=== PATIENT | male | born 1945 | race Caucasian/White ===

== ENCOUNTER 2023-03-18 09:13 | Emergency (ER) | payer MEDICARE, OTHER, SELFPAY ==
[2023-03-18 09:17] VITALS: BP 152/88
--- NOTE | 2023-03-18 09:29 | ED.GENMED ---
History of Present Illness
General
Chief Complaint: Swelling
Source: patient
Exam Limitations: none
Time Seen by Provider: 03/18/23 09:24
Nursing documentation reviewed up to this point in time: agreed with
Travel History
Have you had any contact with someone who has COVID-19?: No
Do you have any symptoms of coronavirus? Fever > 100 degrees, chills, cough, shortness of breath, sore throat, loss of taste or smell, muscle aches, or headache?: No
History of Present Illness
History of Present Illness:
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 Presenting to the emergency department today with concerns of left-sided neck swelling that he noticed
yesterday worsening today no trouble swallowing or breathing. No additional symptoms otherwise. No recent infection.
Past History
Past History
ED Past Medical History: Cancer (Tonsil) and Other (Kidney stones)
ED Past Surgical History: Appendectomy and Other (Radical neck for tonsillar cancer resection; hernia repair)
Social History
Alcohol: None
Personal:
Living: with family
Employment: Retired
Family History
Family History: Other (Noncontributory)
Review of Systems
Review of Systems
Allergies reviewed?: Yes
All Other Systems: ROS reviewed and negative except as documented in HPI and ROS
Phy Exam
Physical Exam
Physical Exam:
GENERAL: Alert , in no apparent distress
EYE: pupils equal and reactive
NECK: Swelling of roughly 3 cm x 3 cm to the left lateral neck does not feel to be somewhat mobile and subcutaneous potentially consistent with lymph node no fluctuance or induration. Supple, no significant adenopathy.
ENT: o/p clr, mmm.
CARDIAC: Regular rate and rhythm .
LUNGS: Clear breath sounds bilaterally, no acute respiratory distress, no wheezes/rales/rhonchi
ABDOMEN: Soft, without focal tenderness, no r/g, no cvat
NEUROLOGICAL: Alert and oriented, no focal neuro deficits
SKIN: Warm and dry, skin intact.
MUSCULOSKELETAL: No edema, well perfused.
PSYCH: Normal and appropriate interaction.
Scores
Heart Failure Risk
Heart Failure Risk Score: Not Applicable
Course
Orders/Labs/Results
Orders:
Orders
03/18/23 09:28
CT Neck With Iv Contrast Urgent
Comment:
Reason For Exam: left neck swelling, hx of tonsillar CA,
03/18/23 09:35
BMP [Basic Metabolic Panel] Urgent
CBC/With Diff [Complete Blood Count/With Diff] Urgent
Abnormal Lab Results
03/18/23
09:35
Absolute Monos (auto) 1.0 H 10^3/uL
(0.1-0.6)
Lymphocytes % 14.1 L %
(20.5-51.1)
Monocytes % 12.5 H %
(1.7-9.3)
BUN 28 H mg/dl
(9-20)
Creatinine 1.5 H mg/dL
(0.7-1.3)
Glucose 158 H mg/dl
(70-99)
03/18/23 09:35
03/18/23 09:35
Vital Signs
Initial and Last Documented VS:
Initial Vital Signs
Temp Pulse Resp BP Pulse Ox
97.8 F 73 18 152/88 99
03/18/23 09:17 03/18/23 09:17 03/18/23 09:17 03/18/23 09:17 03/18/23 09:17
Last Documented Vital Signs
Temp Pulse Resp BP Pulse Ox
97.8 F 64 16 138/77 98
03/18/23 09:17 03/18/23 12:30 03/18/23 12:30 03/18/23 12:30 03/18/23 12:30
MDM/Problems Addressed
MDM/Problems Addressed:
78-year-old male presenting to the emergency department today with concerns of left lower neck swelling starting yesterday. History of tonsillar cancer. Did have previous lymph node removal on the right side of the neck. There is swelling on
examination mild tenderness mild redness to the area no fluctuance or induration potentially consistent with lymph node however with history of cancer plan for CT scan for further assessment. Labs were obtained creatinine patient's baseline 1.5.
CT scan showing swollen lymph node with concern for potential metastasis. Case was discussed with oncology recommended close outpatient follow-up. Otherwise patient stable throughout ER stay will follow-up closely.
*Critical Care Note
Total Time (30-74mins, 75-104mins- exclusive of procedures): Not Applicable
ED Attending Note
-
Portions of this chart may have been created with voice recognition software.� Occasional wrong word or��sound alike� substitutions may have occurred due to the inherent limitations of voice recognition software.
Discharge Plan
Departure
Patient Disposition: Home (Routine Discharge)
Date of Disposition: 03/18/23
Time of Disposition: 13:54
Patient with high blood pressure during this ER visit?: No
Condition: Good
Covid-19: Not Applicable
Discharge Problem:
Supraclavicular adenopathy
Instructions: Lymphadenitis
Prescriptions:
No Action
finasteride 5 MG tablet
5 mg PO DAILY Qty: 30 0RF
loratadine 10 MG tablet
10 mg PO DAILY 0RF
aspirin 81 MG tablet,delayed release (DR/EC)
81 mg PO QPM
simvastatin 40 MG tablet
40 mg PO QPM
cyclosporine [Restasis] 10 DROPS dropperette
1 drops BOTH EYES BID
metoprolol succinate [Toprol XL] 50 mg Tablet Extended Release 24 Hr
50 mg PO DAILY
levothyroxine 25 mcg Tablet
25 mcg PO DAILY
losartan 25 mg Tablet
25 mg PO DAILY
fluticasone propionate [Flonase Allergy Relief] 50 mcg/actuation [place],Suspension
1 spray INTRANASAL BID
furosemide 20 mg tablet
20 mg PO MOWEFR
acetaminophen [acetaminophen] 325 mg tablet
650 mg PO Q4HPRN PRN (Reason: mild pain) Qty: 1 0RF
tramadol 50 mg tablet
50 mg PO Q6HPRN PRN (Reason: severe pain/breakthrough pain) Qty: 15 0RF
Referrals:
Jaja Pierce MD [Active] - Follow up in 5-7 days
Mechelle Robertson PA-C [Family Provider] -
Activity Restrictions/Additional Instructions:
You came to the emergency department today with concerns of swelling to the left side of your neck. This was found to be a supra clavicular enlarged lymph node. This does require further evaluation with oncology to ensure there is no metastasis.
Please follow closely. Return to the emergency department for any worsening, new or concerning symptoms.
Interventions
Interventions:
*Risk Screen - Suicide Last Done: 03/18/23 09:19
*General Assessment Last Done: 03/18/23 09:19
*Neglect/Abuse Screening Last Done: 03/18/23 09:19
*ED COVID-19 Vaccine History Last Done: 03/18/23 09:19
ED- Cardiac Assessment Last Done: 03/18/23 09:41
ED- Pulmonary Assessment Last Done: 03/18/23 09:41
ED-Skin Assessment Last Done: 03/18/23 09:41
[2023-03-18 09:35] VITALS: BMI 23.9
[2023-03-18 09:56] LABS: % Basophils 0.5 % (0-2); % Eosinophils 2.3 % (0-6); % Immature Granulocytes 0.2 % (0-0.5); % Lymphocytes 14.1 % (20.5-51.1); % Monocytes 12.5 % (1.7-9.3); % Neutrophils 70.4 % (42.2-75.2); Absolute Eosinophils 0.2 10^3/uL (0-0.7); Absolute Lymphocytes 1.2 10^3/uL (1.2-3.4); Absolute Neutrophils 5.7 10^3/uL (1.4-6.5); Hematocrit 44.1 % (39.0-52.0); Hemoglobin 15.3 g/dL (13.0-18.0); Mean Corp Hgb Conc. 34.7 g/dL (33.0-37.0); Mean Corpuscular Hgb 30.7 pg (27.0-31.0); Mean Corpuscular Volume 88.6 fL (80.0-94.0); Nucleated Red Blood Cells % 0 % (-); Platelet Count 149 10^3/uL (130-400); Red Blood Cell Count 4.98 10^6/uL (4.70-6.10); Red Cell Dist. Width 13.2 % (11.5-14.5); White Blood Cell Count 8.1 10^3/uL (4.8-10.8)
[2023-03-18 10:10] LABS: Blood Urea Nitrogen 28 mg/dl (9-20); Calcium 9.8 mg/dl (8.4-10.2); Carbon Dioxide 25 mmol/L (22-30); Chloride 104 mmol/L (98-107); Estimated Creatinine Clearance 44 ml/min; Glucose 158 mg/dl (70-99); Potassium 4.9 mmol/L (3.5-5.1); Sodium 136 mmol/L (135-145); eGFR 47.06
[2023-03-18 12:30] VITALS: BP 138/77
[2023-03-18 13:57] VITALS: BP 136/66
== END 2023-03-18 14:32 | disposition home or self-care (01) ==
LOC: EMR 09:13
PROVIDERS: Physician Assistant; EMERGENCY PHYSICIAN Emergency Medicine; FAMILY PHYSICIAN Physician Assistant
DX: R59.0 Localized enlarged lymph nodes (principal); I10 Essential (primary) hypertension; E78.5 Hyperlipidemia, unspecified
CPT/HCPCS: 99285; 70491; 80048; 85025; Q9967

== ENCOUNTER → 2023-04-05 08:10 | Outpatient (REF) | payer MEDICARE, OTHER, SELFPAY ==
[2023-04-05 09:21] VITALS: BP 145/80; BP_SYST 55
== END ==
LOC: RADI 08:10
PROVIDERS: ATTENDING PHYSICIAN Internal Medicine Hematology & Oncology; FAMILY PHYSICIAN Physician Assistant
DX: C77.0 Secondary and unspecified malignant neoplasm of lymph nodes of head, face and neck (principal); C43.9 Malignant melanoma of skin, unspecified
CPT/HCPCS: 88172; 88173; 88305; 38505; 76942; 88333; 88341; 88342

== ENCOUNTER → 2023-04-12 07:40 | Outpatient (REF) | payer MEDICARE, OTHER, SELFPAY | LOC: HWRAD 07:40 | PROVIDERS: ATTENDING PHYSICIAN Surgery Vascular Surgery; FAMILY PHYSICIAN Physician Assistant | DX: I71.40 Abdominal aortic aneurysm, without rupture, unspecified (principal) | CPT/HCPCS: 74176 ==

== ENCOUNTER → 2023-04-22 09:13 | Outpatient (REF) | payer MEDICARE, OTHER, SELFPAY ==
[2023-04-22 12:50] LABS: % Basophils 0.9 % (0-2); % Eosinophils 3.4 % (0-6); % Immature Granulocytes 0.3 % (0-0.5); % Lymphocytes 14.8 % (20.5-51.1); % Monocytes 11.6 % (1.7-9.3); Absolute Basophils 0.1 10^3/uL (0-0.2); Absolute Eosinophils 0.2 10^3/uL (0-0.7); Absolute Monocytes 0.8 10^3/uL (0.1-0.6); Absolute Neutrophils 4.7 10^3/uL (1.4-6.5); Hematocrit 42.8 % (39.0-52.0); Hemoglobin 15.1 g/dL (13.0-18.0); Mean Corp Hgb Conc. 35.3 g/dL (33.0-37.0); Mean Corpuscular Hgb 30.9 pg (27.0-31.0); Mean Corpuscular Volume 87.7 fL (80.0-94.0); Nucleated Red Blood Cells % 0 % (-); Red Blood Cell Count 4.88 10^6/uL (4.70-6.10); Red Cell Dist. Width 13.1 % (11.5-14.5); White Blood Cell Count 6.7 10^3/uL (4.8-10.8)
[2023-04-22 13:07] LABS: ALT (SGPT) 21 U/L (0-50); AST (SGOT) 24 U/L (17-59); Albumin 4.5 g/dl (3.5-5.0); Alkaline Phosphatase 76 U/L (38-126); Blood Urea Nitrogen 22 mg/dl (9-20); Calcium 10.3 mg/dl (8.4-10.2); Carbon Dioxide 22 mmol/L (22-30); Chloride 105 mmol/L (98-107); Glucose 122 mg/dl (70-99); HDL Cholesterol 52 mg/dl; LDL Cholesterol, Calculated 54 mg/dl; Potassium 4.2 mmol/L (3.5-5.1); Sodium 139 mmol/L (135-145); Total Bilirubin 0.8 mg/dl (0.2-1.3); Total Cholesterol 152 mg/dl (50-199); Total Protein 7.6 g/dl (6.3-8.2); Triglyceride 230 mg/dl (10-149); Very Low Density Lipoprotein 46 mg/dl (0-30); eGFR 47.06
[2023-04-22 13:33] LABS: TSH Reflex To Free T4 4.32 uIU/ml (0.47-4.68)
[2023-04-22 13:36] LABS: Microalbumin/creatinine Ratio 7.7 mg/g
== END ==
LOC: HWLAB 09:13
PROVIDERS: ATTENDING PHYSICIAN Physician Assistant
DX: E78.2 Mixed hyperlipidemia (principal); I12.9 Hypertensive chronic kidney disease with stage 1 through stage 4 chronic kidney disease, or unspecified chronic kidney disease; N18.31 Chronic kidney disease, stage 3a; R73.09 Other abnormal glucose; E03.9 Hypothyroidism, unspecified; N40.0 Benign prostatic hyperplasia without lower urinary tract symptoms
CPT/HCPCS: 36415; 80053; 80061; 82043; 82570; 83036; 84443; 85025

== ENCOUNTER → 2023-04-29 09:51 | Outpatient (REF) | payer MEDICARE, OTHER, SELFPAY | LOC: DHVS 09:51 | PROVIDERS: ATTENDING PHYSICIAN Surgery Vascular Surgery; FAMILY PHYSICIAN Physician Assistant | DX: I71.40 Abdominal aortic aneurysm, without rupture, unspecified (principal) | CPT/HCPCS: 93922; 93925 ==

== ENCOUNTER → 2023-05-27 10:03 | Outpatient (REF) | payer MEDICARE, OTHER, SELFPAY | LOC: HWRAD 10:03 | PROVIDERS: ATTENDING PHYSICIAN Internal Medicine Critical Care Medicine; FAMILY PHYSICIAN Physician Assistant | DX: R91.1 Solitary pulmonary nodule (principal) | CPT/HCPCS: 71250 ==

== ENCOUNTER 2023-06-03 06:30 | Day surgery (SDC) | payer MEDICARE, OTHER, SELFPAY ==
[2023-05-23 13:16] LABS: INR 1.06; PT 13.8 Sec (11.4-14.6)
[2023-05-23 13:17] LABS: APTT 34.8 Sec (23.4-35.0)
[2023-06-03] VITALS (8 sets, daily range): BP systolic 104–145; BP diastolic 62–72; BMI 23.2
[2023-06-03] MEDS: NORMOSOL-R 1000 IV (10:55)
== END 2023-06-03 14:30 | disposition home or self-care (01) ==
LOC: SDS 06:30
PROVIDERS: ATTENDING PHYSICIAN Internal Medicine Critical Care Medicine; FAMILY PHYSICIAN Physician Assistant
DX: C34.31 Malignant neoplasm of lower lobe, right bronchus or lung (principal); R91.1 Solitary pulmonary nodule
CPT/HCPCS: 31623; 31627; 31654; 31645; 31624; 88172; 88173; 88305; 36415; 71045; 76000; 85610; 85730; 88112; 88333; 88341; 88342; 94640; C1887

== ENCOUNTER → 2023-09-23 09:13 | Outpatient (REF) | payer MEDICARE, OTHER, SELFPAY | LOC: HWRAD 09:13 | PROVIDERS: ATTENDING PHYSICIAN Radiology Radiation Oncology; FAMILY PHYSICIAN Physician Assistant; REFERRING PHYSICIAN Internal Medicine Hematology & Oncology | DX: C34.31 Malignant neoplasm of lower lobe, right bronchus or lung (principal) | CPT/HCPCS: 71250 ==

== ENCOUNTER → 2023-09-24 09:48 | Outpatient (REF) | payer MEDICARE, OTHER, SELFPAY | LOC: HWRAD 09:48 | PROVIDERS: ATTENDING PHYSICIAN Physician Assistant | DX: M25.552 Pain in left hip (principal) | CPT/HCPCS: 72170; 73552 ==

== ENCOUNTER → 2023-10-17 07:00 | Outpatient (REF) | payer MEDICARE, OTHER, SELFPAY ==
[2023-10-17 07:22] VITALS: BP 172/89; BP_SYST 63
[2023-10-17] MEDS: ANCEF 10 IV (08:22)
[2023-10-17 10:00] VITALS: BP 160/94
== END ==
LOC: RADI 07:00
PROVIDERS: ATTENDING PHYSICIAN Internal Medicine Hematology & Oncology; FAMILY PHYSICIAN Physician Assistant
DX: C09.1 Malignant neoplasm of tonsillar pillar (anterior) (posterior) (principal); C43.4 Malignant melanoma of scalp and neck
CPT/HCPCS: 36561; 76937; 77001; 99152; 99153; C1788

== ENCOUNTER → 2023-10-30 09:31 | Outpatient (REF) | payer MEDICARE, OTHER, SELFPAY ==
[2023-10-30 12:17] LABS: % Basophils 1.1 % (0-2); % Eosinophils 2.9 % (0-6); % Immature Granulocytes 0.4 % (0-0.5); % Lymphocytes 12.8 % (20.5-51.1); % Monocytes 11.7 % (1.7-9.3); % Neutrophils 71.1 % (42.2-75.2); Absolute Basophils 0.1 10^3/uL (0-0.2); Absolute Eosinophils 0.2 10^3/uL (0-0.7); Absolute Lymphocytes 0.9 10^3/uL (1.2-3.4); Absolute Monocytes 0.8 10^3/uL (0.1-0.6); Absolute Neutrophils 5.1 10^3/uL (1.4-6.5); Hematocrit 45.9 % (39.0-52.0); Hemoglobin 15.5 g/dL (13.0-18.0); Mean Corp Hgb Conc. 33.8 g/dL (33.0-37.0); Mean Corpuscular Hgb 31.1 pg (27.0-31.0); Mean Corpuscular Volume 92.2 fL (80.0-94.0); Mean Platelet Volume 9.7 fL (7.4-10.4); Nucleated Red Blood Cells % 0 % (-); Platelet Count 146 10^3/uL (130-400); Red Blood Cell Count 4.98 10^6/uL (4.70-6.10); Red Cell Dist. Width 12.9 % (11.5-14.5); White Blood Cell Count 7.2 10^3/uL (4.8-10.8)
[2023-10-30 12:40] LABS: Glycohemoglobin (HgbA1c) 5.8 % (4.0-5.6)
[2023-10-30 12:44] LABS: Microalbumin/creatinine Ratio 9.5 mg/g
[2023-10-30 12:53] LABS: ALT (SGPT) 24 U/L (0-50); AST (SGOT) 27 U/L (17-59); Albumin 4.8 g/dl (3.5-5.0); Alkaline Phosphatase 72 U/L (38-126); Blood Urea Nitrogen 26 mg/dl (9-20); Calcium 10.2 mg/dl (8.4-10.2); Carbon Dioxide 25 mmol/L (22-30); Chloride 101 mmol/L (98-107); Glucose 110 mg/dl (70-99); HDL Cholesterol 54 mg/dl; Potassium 4.8 mmol/L (3.5-5.1); Sodium 139 mmol/L (135-145); Total Bilirubin 0.8 mg/dl (0.2-1.3); Total Cholesterol 159 mg/dl (50-199); Total Protein 7.3 g/dl (6.3-8.2)
[2023-10-30 13:02] LABS: LDL Cholesterol, Calculated 66 mg/dl; Triglyceride 196 mg/dl (10-149); Very Low Density Lipoprotein 39 mg/dl (0-30)
[2023-10-30 13:22] LABS: PSA, Total - Diagnostic 1.02 ng/ml (0.0-4.0); TSH Reflex To Free T4 7.16 uIU/ml (0.47-4.68)
[2023-10-30 13:52] LABS: Free T4 0.88 ng/dl (0.78-2.19)
== END ==
LOC: HWLAB 09:31
PROVIDERS: ATTENDING PHYSICIAN Physician Assistant
DX: E78.2 Mixed hyperlipidemia (principal); N18.31 Chronic kidney disease, stage 3a; R73.09 Other abnormal glucose; E04.1 Nontoxic single thyroid nodule; E03.9 Hypothyroidism, unspecified; N40.0 Benign prostatic hyperplasia without lower urinary tract symptoms
CPT/HCPCS: 36415; 80053; 80061; 82043; 82570; 83036; 84153; 84439; 84443; 85025

== ENCOUNTER → 2023-12-06 09:39 | Outpatient (REF) | payer MEDICARE, OTHER, SELFPAY ==
[2023-12-06 11:31] LABS: % Basophils 0.9 % (0-2); % Eosinophils 4.1 % (0-6); % Immature Granulocytes 0.5 % (0-0.5); % Lymphocytes 11.7 % (20.5-51.1); % Monocytes 11.5 % (1.7-9.3); % Neutrophils 71.3 % (42.2-75.2); Absolute Basophils 0.1 10^3/uL (0-0.2); Absolute Eosinophils 0.3 10^3/uL (0-0.7); Absolute Lymphocytes 0.9 10^3/uL (1.2-3.4); Absolute Monocytes 0.9 10^3/uL (0.1-0.6); Absolute Neutrophils 5.3 10^3/uL (1.4-6.5); Hematocrit 44.5 % (39.0-52.0); Mean Corp Hgb Conc. 33.7 g/dL (33.0-37.0); Mean Corpuscular Hgb 30.6 pg (27.0-31.0); Mean Corpuscular Volume 90.8 fL (80.0-94.0); Mean Platelet Volume 9.9 fL (7.4-10.4); Nucleated Red Blood Cells % 0 % (-); Platelet Count 152 10^3/uL (130-400); Red Cell Dist. Width 12.7 % (11.5-14.5); White Blood Cell Count 7.5 10^3/uL (4.8-10.8)
[2023-12-06 11:41] LABS: ALT (SGPT) 18 U/L (0-50); AST (SGOT) 24 U/L (17-59); Albumin 4.6 g/dl (3.5-5.0); Alkaline Phosphatase 64 U/L (38-126); Blood Urea Nitrogen 24 mg/dl (9-20); Calcium 10.4 mg/dl (8.4-10.2); Carbon Dioxide 27 mmol/L (22-30); Chloride 103 mmol/L (98-107); Glucose 111 mg/dl (70-99); Potassium 5.2 mmol/L (3.5-5.1); Sodium 144 mmol/L (135-145); Total Bilirubin 0.6 mg/dl (0.2-1.3); Total Protein 7.5 g/dl (6.3-8.2); eGFR 43.56
[2023-12-06 11:58] LABS: Free T4 0.83 ng/dl (0.78-2.19)
[2023-12-06 12:12] LABS: TSH 6.45 uIU/ml (0.47-4.68)
[2023-12-08 02:13] LABS: Total T3 (Sendout) 91 ng/dL (80-200)
== END ==
LOC: HWLAB 09:39
PROVIDERS: ATTENDING PHYSICIAN Internal Medicine Hematology & Oncology; FAMILY PHYSICIAN Physician Assistant
DX: Z71.89 Other specified counseling (principal); E04.1 Nontoxic single thyroid nodule; C09.1 Malignant neoplasm of tonsillar pillar (anterior) (posterior); C44.42 Squamous cell carcinoma of skin of scalp and neck; R59.0 Localized enlarged lymph nodes; C43.4 Malignant melanoma of scalp and neck; C34.31 Malignant neoplasm of lower lobe, right bronchus or lung
CPT/HCPCS: 36415; 80053; 84439; 84443; 84480; 85025

== ENCOUNTER → 2023-12-16 09:24 | Outpatient (REF) | payer MEDICARE, OTHER, SELFPAY | LOC: HWRAD 09:24 | PROVIDERS: ATTENDING PHYSICIAN Radiology Radiation Oncology; FAMILY PHYSICIAN Physician Assistant | DX: I71.40 Abdominal aortic aneurysm, without rupture, unspecified (principal); C34.31 Malignant neoplasm of lower lobe, right bronchus or lung | CPT/HCPCS: 71250 ==

== ENCOUNTER → 2024-03-16 09:40 | Outpatient (REF) | payer MEDICARE, OTHER, SELFPAY ==
[2024-03-16 11:17] LABS: % Basophils 0.9 % (0-2); % Eosinophils 4.7 % (0-6); % Immature Granulocytes 0.5 % (0-0.5); % Lymphocytes 14.4 % (20.5-51.1); % Monocytes 11.4 % (1.7-9.3); % Neutrophils 68.1 % (42.2-75.2); Absolute Basophils 0.1 10^3/uL (0-0.2); Absolute Eosinophils 0.3 10^3/uL (0-0.7); Absolute Lymphocytes 0.9 10^3/uL (1.2-3.4); Absolute Monocytes 0.7 10^3/uL (0.1-0.6); Absolute Neutrophils 4.4 10^3/uL (1.4-6.5); Hemoglobin 15.2 g/dL (13.0-18.0); Mean Corp Hgb Conc. 33.8 g/dL (33.0-37.0); Mean Corpuscular Hgb 30.8 pg (27.0-31.0); Mean Corpuscular Volume 91.3 fL (80.0-94.0); Mean Platelet Volume 9.8 fL (7.4-10.4); Nucleated Red Blood Cells % 0 % (-); Platelet Count 153 10^3/uL (130-400); Red Blood Cell Count 4.93 10^6/uL (4.70-6.10); Red Cell Dist. Width 12.9 % (11.5-14.5); White Blood Cell Count 6.4 10^3/uL (4.8-10.8)
[2024-03-16 12:00] LABS: ALT (SGPT) 25 U/L (0-50); AST (SGOT) 27 U/L (17-59); Albumin 4.8 g/dl (3.5-5.0); Alkaline Phosphatase 74 U/L (38-126); Blood Urea Nitrogen 23 mg/dl (9-20); Calcium 10.2 mg/dl (8.4-10.2); Carbon Dioxide 28 mmol/L (22-30); Chloride 101 mmol/L (98-107); Glucose 118 mg/dl (70-99); Potassium 4.9 mmol/L (3.5-5.1); Sodium 139 mmol/L (135-145); Total Bilirubin 0.8 mg/dl (0.2-1.3); Total Protein 7.4 g/dl (6.3-8.2); eGFR 46.77
[2024-03-16 12:34] LABS: Total Thyroxine 6.42 ug/dl (5.5-11.0)
[2024-03-16 12:47] LABS: TSH Reflex To Free T4 7.57 uIU/ml (0.47-4.68)
[2024-03-16 13:19] LABS: Free T4 0.89 ng/dl (0.78-2.19)
[2024-03-18 14:17] LABS: Total T3 (Sendout) 129 ng/dL (80-200)
== END ==
LOC: HWLAB 09:40
PROVIDERS: ATTENDING PHYSICIAN Internal Medicine Hematology & Oncology; FAMILY PHYSICIAN Physician Assistant
DX: C09.1 Malignant neoplasm of tonsillar pillar (anterior) (posterior) (principal); C44.42 Squamous cell carcinoma of skin of scalp and neck; R59.0 Localized enlarged lymph nodes; C43.4 Malignant melanoma of scalp and neck; C34.31 Malignant neoplasm of lower lobe, right bronchus or lung; E78.5 Hyperlipidemia, unspecified
CPT/HCPCS: 36415; 80053; 84436; 84439; 84443; 84480; 85025

== ENCOUNTER → 2024-04-30 09:59 | Outpatient (REF) | payer MEDICARE, OTHER, SELFPAY ==
[2024-04-30 12:49] LABS: % Basophils 0.8 % (0-2); % Eosinophils 5.1 % (0-6); % Immature Granulocytes 0.3 % (0-0.5); % Lymphocytes 12.5 % (20.5-51.1); % Monocytes 15.7 % (1.7-9.3); % Neutrophils 65.6 % (42.2-75.2); Absolute Basophils 0.1 10^3/uL (0-0.2); Absolute Eosinophils 0.3 10^3/uL (0-0.7); Absolute Lymphocytes 0.8 10^3/uL (1.2-3.4); Absolute Neutrophils 4.1 10^3/uL (1.4-6.5); Hematocrit 44.5 % (39.0-52.0); Hemoglobin 14.9 g/dL (13.0-18.0); Mean Corp Hgb Conc. 33.5 g/dL (33.0-37.0); Mean Corpuscular Hgb 31.3 pg (27.0-31.0); Mean Corpuscular Volume 93.5 fL (80.0-94.0); Nucleated Red Blood Cells % 0 % (-); Platelet Count 162 10^3/uL (130-400); Red Blood Cell Count 4.76 10^6/uL (4.70-6.10); Red Cell Dist. Width 13.2 % (11.5-14.5); White Blood Cell Count 6.2 10^3/uL (4.8-10.8)
[2024-04-30 13:08] LABS: ALT (SGPT) 24 U/L (0-50); AST (SGOT) 27 U/L (17-59); Albumin 4.3 g/dl (3.5-5.0); Alkaline Phosphatase 74 U/L (38-126); Blood Urea Nitrogen 22 mg/dl (9-20); Calcium 9.9 mg/dl (8.4-10.2); Carbon Dioxide 28 mmol/L (22-30); Chloride 103 mmol/L (98-107); Glucose 117 mg/dl (70-99); Potassium 4.9 mmol/L (3.5-5.1); Sodium 139 mmol/L (135-145); Total Bilirubin 0.7 mg/dl (0.2-1.3); Total Protein 7.2 g/dl (6.3-8.2); eGFR 50.81
[2024-04-30 13:31] LABS: Total Thyroxine 6.24 ug/dl (5.5-11.0)
[2024-04-30 13:45] LABS: TSH Reflex To Free T4 8.43 uIU/ml (0.47-4.68)
[2024-04-30 14:13] LABS: Free T4 0.85 ng/dl (0.78-2.19)
[2024-05-02 03:26] LABS: Total T3 (Sendout) 88 ng/dL (80-200)
== END ==
LOC: HWLAB 09:59
PROVIDERS: ATTENDING PHYSICIAN Internal Medicine Hematology & Oncology; FAMILY PHYSICIAN Physician Assistant
DX: C09.1 Malignant neoplasm of tonsillar pillar (anterior) (posterior) (principal); C44.42 Squamous cell carcinoma of skin of scalp and neck; R59.0 Localized enlarged lymph nodes; C43.4 Malignant melanoma of scalp and neck; C34.31 Malignant neoplasm of lower lobe, right bronchus or lung; E78.5 Hyperlipidemia, unspecified
CPT/HCPCS: 36415; 80053; 84436; 84439; 84443; 84480; 85025

== ENCOUNTER → 2024-05-18 12:29 | Outpatient (REF) | payer MEDICARE, OTHER, SELFPAY | LOC: HWRAD 12:29 | PROVIDERS: ATTENDING PHYSICIAN Surgery Vascular Surgery; FAMILY PHYSICIAN Physician Assistant; REFERRING PHYSICIAN Radiology Radiation Oncology | DX: I71.40 Abdominal aortic aneurysm, without rupture, unspecified (principal) | CPT/HCPCS: 74176 ==

== ENCOUNTER → 2024-05-25 08:35 | Outpatient (REF) | payer MEDICARE, OTHER, SELFPAY | LOC: RAD 08:35 | PROVIDERS: ATTENDING PHYSICIAN Surgery Vascular Surgery; FAMILY PHYSICIAN Physician Assistant | DX: R29.898 Other symptoms and signs involving the musculoskeletal system (principal) | CPT/HCPCS: 93922; 93925 ==

== ENCOUNTER → 2024-06-12 09:28 | Outpatient (REF) | payer MEDICARE, OTHER, SELFPAY ==
[2024-06-12 12:08] LABS: % Basophils 0.9 % (0-2); % Eosinophils 4.3 % (0-6); % Immature Granulocytes 0.3 % (0-0.5); % Lymphocytes 12.6 % (20.5-51.1); % Neutrophils 66.9 % (42.2-75.2); Absolute Basophils 0.1 10^3/uL (0-0.2); Absolute Eosinophils 0.3 10^3/uL (0-0.7); Absolute Lymphocytes 0.9 10^3/uL (1.2-3.4); Absolute Neutrophils 4.6 10^3/uL (1.4-6.5); Hematocrit 44.6 % (39.0-52.0); Hemoglobin 14.8 g/dL (13.0-18.0); Mean Corp Hgb Conc. 33.2 g/dL (33.0-37.0); Mean Corpuscular Hgb 30.6 pg (27.0-31.0); Mean Corpuscular Volume 92.3 fL (80.0-94.0); Nucleated Red Blood Cells % 0 % (-); Platelet Count 164 10^3/uL (130-400); Red Blood Cell Count 4.83 10^6/uL (4.70-6.10); Red Cell Dist. Width 13.2 % (11.5-14.5); White Blood Cell Count 6.8 10^3/uL (4.8-10.8)
[2024-06-12 16:31] LABS: ALT (SGPT) 24 U/L (0-50); AST (SGOT) 26 U/L (17-59); Albumin 4.9 g/dl (3.5-5.0); Alkaline Phosphatase 72 U/L (38-126); Blood Urea Nitrogen 26 mg/dl (9-20); Calcium 10.3 mg/dl (8.4-10.2); Carbon Dioxide 24 mmol/L (22-30); Chloride 106 mmol/L (98-107); Glucose 111 mg/dl (70-99); Potassium 5.2 mmol/L (3.5-5.1); Sodium 142 mmol/L (135-145); Total Bilirubin 0.7 mg/dl (0.2-1.3); Total Protein 7.8 g/dl (6.3-8.2); eGFR 46.77
[2024-06-12 17:12] LABS: Free T4 0.89 ng/dl (0.78-2.19)
[2024-06-12 17:26] LABS: TSH 6.37 uIU/ml (0.47-4.68)
[2024-06-15 01:43] LABS: Total T3 (Sendout) 96 ng/dL (80-200)
== END ==
LOC: HWLAB 09:28
PROVIDERS: ATTENDING PHYSICIAN Internal Medicine Hematology & Oncology; FAMILY PHYSICIAN Physician Assistant
DX: C09.1 Malignant neoplasm of tonsillar pillar (anterior) (posterior) (principal); C44.42 Squamous cell carcinoma of skin of scalp and neck; R59.0 Localized enlarged lymph nodes; C43.4 Malignant melanoma of scalp and neck; C34.31 Malignant neoplasm of lower lobe, right bronchus or lung; E78.5 Hyperlipidemia, unspecified
CPT/HCPCS: 36415; 80053; 84439; 84443; 84480; 85025

== ENCOUNTER → 2024-06-19 10:35 | Outpatient (REF) | payer MEDICARE, OTHER, SELFPAY | LOC: HWRAD 10:35 | PROVIDERS: ATTENDING PHYSICIAN Physician Assistant | DX: M16.12 Unilateral primary osteoarthritis, left hip (principal); M47.817 Spondylosis without myelopathy or radiculopathy, lumbosacral region | CPT/HCPCS: 72110; 73523 ==

== ENCOUNTER → 2024-07-30 09:42 | Outpatient (REF) | payer MEDICARE, OTHER, SELFPAY ==
[2024-07-30 12:29] LABS: % Basophils 0.9 % (0-2); % Eosinophils 6.3 % (0-6); % Immature Granulocytes 0.3 % (0-0.5); % Lymphocytes 13.1 % (20.5-51.1); % Monocytes 11.4 % (1.7-9.3); Absolute Basophils 0.1 10^3/uL (0-0.2); Absolute Eosinophils 0.4 10^3/uL (0-0.7); Absolute Lymphocytes 0.9 10^3/uL (1.2-3.4); Absolute Monocytes 0.8 10^3/uL (0.1-0.6); Absolute Neutrophils 4.7 10^3/uL (1.4-6.5); Hematocrit 43.4 % (39.0-52.0); Hemoglobin 14.4 g/dL (13.0-18.0); Mean Corp Hgb Conc. 33.2 g/dL (33.0-37.0); Mean Corpuscular Hgb 30.5 pg (27.0-31.0); Mean Corpuscular Volume 91.9 fL (80.0-94.0); Mean Platelet Volume 10.1 fL (7.4-10.4); Nucleated Red Blood Cells % 0 % (-); Platelet Count 152 10^3/uL (130-400); Red Blood Cell Count 4.72 10^6/uL (4.70-6.10); Red Cell Dist. Width 13.4 % (11.5-14.5); White Blood Cell Count 6.9 10^3/uL (4.8-10.8)
[2024-07-30 13:15] LABS: ALT (SGPT) 16 U/L (0-50); AST (SGOT) 21 U/L (17-59); Albumin 4.5 g/dl (3.5-5.0); Alkaline Phosphatase 69 U/L (38-126); Blood Urea Nitrogen 24 mg/dl (9-20); Calcium 10.2 mg/dl (8.4-10.2); Carbon Dioxide 25 mmol/L (22-30); Chloride 107 mmol/L (98-107); Glucose 124 mg/dl (70-99); Potassium 4.7 mmol/L (3.5-5.1); Sodium 139 mmol/L (135-145); Total Bilirubin 0.7 mg/dl (0.2-1.3); Total Protein 7.3 g/dl (6.3-8.2); eGFR 43.29
[2024-07-30 13:35] LABS: Free T4 0.96 ng/dl (0.78-2.19)
[2024-07-30 13:49] LABS: TSH 5.97 uIU/ml (0.47-4.68)
[2024-08-01 17:48] LABS: Total T3 (Sendout) 88 ng/dL (80-200)
== END ==
LOC: HWLAB 09:42
PROVIDERS: ATTENDING PHYSICIAN Internal Medicine Hematology & Oncology; FAMILY PHYSICIAN Physician Assistant; REFERRING PHYSICIAN Radiology Radiation Oncology
DX: C09.1 Malignant neoplasm of tonsillar pillar (anterior) (posterior) (principal); C44.42 Squamous cell carcinoma of skin of scalp and neck; R59.0 Localized enlarged lymph nodes; C43.4 Malignant melanoma of scalp and neck; C34.31 Malignant neoplasm of lower lobe, right bronchus or lung; E78.5 Hyperlipidemia, unspecified
CPT/HCPCS: 36415; 80053; 84439; 84443; 84480; 85025

== ENCOUNTER → 2024-08-07 11:23 | Outpatient (REF) | payer MEDICARE, OTHER, SELFPAY | LOC: HWRAD 11:23 | PROVIDERS: ATTENDING PHYSICIAN Radiology Radiation Oncology; FAMILY PHYSICIAN Physician Assistant | DX: C34.31 Malignant neoplasm of lower lobe, right bronchus or lung (principal) | CPT/HCPCS: 71250 ==

== ENCOUNTER → 2024-09-07 09:15 | Outpatient (REF) | payer MEDICARE, OTHER, SELFPAY ==
[2024-09-07 12:59] LABS: Hematocrit 43.8 % (39.0-52.0); Hemoglobin 14.9 g/dL (13.0-18.0); Mean Corp Hgb Conc. 34.0 g/dL (33.0-37.0); Mean Corpuscular Volume 91.8 fL (80.0-94.0); Nucleated Red Blood Cells % 0 % (-); Platelet Count 170 10^3/uL (130-400); Red Cell Dist. Width 13.7 % (11.5-14.5)
[2024-09-07 13:00] LABS: ALT (SGPT) 18 U/L (0-50); AST (SGOT) 21 U/L (17-59); Albumin 4.6 g/dl (3.5-5.0); Alkaline Phosphatase 64 U/L (38-126); Blood Urea Nitrogen 25 mg/dl (9-20); Calcium 10.1 mg/dl (8.4-10.2); Carbon Dioxide 27 mmol/L (22-30); Chloride 105 mmol/L (98-107); Glucose 118 mg/dl (70-99); Potassium 4.9 mmol/L (3.5-5.1); Sodium 138 mmol/L (135-145); Total Protein 7.4 g/dl (6.3-8.2); eGFR 50.81
[2024-09-10 00:46] LABS: Total T3 (Sendout) 87 ng/dL (80-200)
== END ==
LOC: HWLAB 09:15
PROVIDERS: ATTENDING PHYSICIAN Internal Medicine Hematology & Oncology; FAMILY PHYSICIAN Physician Assistant
DX: C09.1 Malignant neoplasm of tonsillar pillar (anterior) (posterior) (principal); C44.42 Squamous cell carcinoma of skin of scalp and neck; R59.0 Localized enlarged lymph nodes; C43.4 Malignant melanoma of scalp and neck; C34.31 Malignant neoplasm of lower lobe, right bronchus or lung; E78.5 Hyperlipidemia, unspecified
CPT/HCPCS: 36415; 80053; 84436; 84439; 84443; 84480; 85025

== ENCOUNTER → 2024-10-20 09:39 | Outpatient (REF) | payer MEDICARE, OTHER, SELFPAY ==
[2024-10-20 12:38] LABS: Hematocrit 44.9 % (39.0-52.0); Hemoglobin 14.5 g/dL (13.0-18.0); Mean Corp Hgb Conc. 32.3 g/dL (33.0-37.0); Mean Corpuscular Volume 93.7 fL (80.0-94.0); Nucleated Red Blood Cells % 0 % (-); Platelet Count 173 10^3/uL (130-400); Red Cell Dist. Width 13.3 % (11.5-14.5)
[2024-10-20 14:16] LABS: ALT (SGPT) 19 U/L (0-50); AST (SGOT) 22 U/L (17-59); Albumin 4.8 g/dl (3.5-5.0); Alkaline Phosphatase 66 U/L (38-126); Blood Urea Nitrogen 27 mg/dl (9-20); Calcium 10.3 mg/dl (8.4-10.2); Carbon Dioxide 25 mmol/L (22-30); Chloride 108 mmol/L (98-107); Glucose 136 mg/dl (70-99); Potassium 4.6 mmol/L (3.5-5.1); Sodium 140 mmol/L (135-145); Total Protein 7.5 g/dl (6.3-8.2); eGFR 43.29
[2024-10-23 01:38] LABS: Total T3 (Sendout) 91 ng/dL (80-200)
== END ==
LOC: HWLAB 09:39
PROVIDERS: ATTENDING PHYSICIAN Internal Medicine Hematology & Oncology; FAMILY PHYSICIAN Physician Assistant
DX: C09.1 Malignant neoplasm of tonsillar pillar (anterior) (posterior) (principal); C44.42 Squamous cell carcinoma of skin of scalp and neck; R59.0 Localized enlarged lymph nodes; C43.4 Malignant melanoma of scalp and neck; C34.31 Malignant neoplasm of lower lobe, right bronchus or lung; E78.5 Hyperlipidemia, unspecified
CPT/HCPCS: 36415; 80053; 84436; 84443; 84480; 85025

== ENCOUNTER → 2024-11-13 08:01 | Outpatient (REF) | payer MEDICARE, OTHER, SELFPAY ==
[2024-11-13 08:24] LABS: Glucose 124 mg/dl (70-99)
== END ==
LOC: PET 08:01
PROVIDERS: ATTENDING PHYSICIAN Internal Medicine Hematology & Oncology
DX: C43.30 Malignant melanoma of unspecified part of face (principal); C34.31 Malignant neoplasm of lower lobe, right bronchus or lung; R59.0 Localized enlarged lymph nodes; C43.4 Malignant melanoma of scalp and neck; A41.02 Sepsis due to Methicillin resistant Staphylococcus aureus
CPT/HCPCS: 36415; 82947

== ENCOUNTER → 2024-12-03 10:12 | Outpatient (REF) | payer MEDICARE, OTHER, SELFPAY ==
[2024-12-03 12:58] LABS: Hematocrit 38.7 % (39.0-52.0); Hemoglobin 12.8 g/dL (13.0-18.0); Mean Corp Hgb Conc. 33.1 g/dL (33.0-37.0); Mean Corpuscular Volume 92.8 fL (80.0-94.0); Nucleated Red Blood Cells % 0 % (-); Platelet Count 176 10^3/uL (130-400); Red Cell Dist. Width 13.3 % (11.5-14.5)
[2024-12-03 13:00] LABS: ALT (SGPT) 17 U/L (0-50); AST (SGOT) 23 U/L (17-59); Albumin 4.1 g/dl (3.5-5.0); Alkaline Phosphatase 62 U/L (38-126); Blood Urea Nitrogen 17 mg/dl (9-20); Calcium 9.4 mg/dl (8.4-10.2); Carbon Dioxide 27 mmol/L (22-30); Chloride 106 mmol/L (98-107); Glucose 96 mg/dl (70-99); Potassium 4.7 mmol/L (3.5-5.1); Sodium 139 mmol/L (135-145); Total Protein 6.9 g/dl (6.3-8.2); eGFR 50.81
[2024-12-03 13:36] LABS: TSH 4.97 uIU/ml (0.47-4.68)
[2024-12-06 10:23] LABS: Total T3 (Sendout) 101 ng/dL (80-200)
== END ==
LOC: HWLAB 10:12
PROVIDERS: ATTENDING PHYSICIAN Internal Medicine Hematology & Oncology; FAMILY PHYSICIAN Physician Assistant
DX: C09.1 Malignant neoplasm of tonsillar pillar (anterior) (posterior) (principal); C44.42 Squamous cell carcinoma of skin of scalp and neck; R59.0 Localized enlarged lymph nodes; C43.4 Malignant melanoma of scalp and neck; C34.31 Malignant neoplasm of lower lobe, right bronchus or lung; E78.5 Hyperlipidemia, unspecified
CPT/HCPCS: 36415; 80053; 84439; 84443; 84480; 85025

== ENCOUNTER → 2024-12-16 09:34 | Outpatient (REF) | payer MEDICARE, OTHER, SELFPAY ==
[2024-12-16 12:22] LABS: Hematocrit 44.1 % (39.0-52.0); Hemoglobin 14.0 g/dL (13.0-18.0); Mean Corp Hgb Conc. 31.7 g/dL (33.0-37.0); Mean Corpuscular Volume 95.2 fL (80.0-94.0); Nucleated Red Blood Cells % 0 % (-); Platelet Count 182 10^3/uL (130-400); Red Cell Dist. Width 13.3 % (11.5-14.5)
[2024-12-16 13:20] LABS: ALT (SGPT) 18 U/L (0-50); AST (SGOT) 23 U/L (17-59); Albumin 4.5 g/dl (3.5-5.0); Alkaline Phosphatase 71 U/L (38-126); Blood Urea Nitrogen 24 mg/dl (9-20); Calcium 9.8 mg/dl (8.4-10.2); Carbon Dioxide 25 mmol/L (22-30); Chloride 105 mmol/L (98-107); Glucose 109 mg/dl (70-99); HDL Cholesterol 54 mg/dl; LDL Cholesterol, Calculated 72 mg/dl; Potassium 4.5 mmol/L (3.5-5.1); Sodium 138 mmol/L (135-145); Total Protein 7.4 g/dl (6.3-8.2); Very Low Density Lipoprotein 27 mg/dl (0-30); eGFR 46.77
[2024-12-16 13:31] LABS: Glycohemoglobin (HgbA1c) 5.6 % (4.0-5.9)
[2024-12-16 13:46] LABS: PSA, Total - Diagnostic 1.21 ng/ml (0.0-4.0)
== END ==
LOC: HWLAB 09:34
PROVIDERS: ATTENDING PHYSICIAN Physician Assistant
DX: E78.2 Mixed hyperlipidemia (principal); N18.31 Chronic kidney disease, stage 3a; R73.09 Other abnormal glucose; E04.1 Nontoxic single thyroid nodule; E03.9 Hypothyroidism, unspecified; N40.0 Benign prostatic hyperplasia without lower urinary tract symptoms
CPT/HCPCS: 36415; 80053; 80061; 83036; 84153; 84443; 85025

== ENCOUNTER 2024-12-28 06:23 | Day surgery (SDC) | payer MEDICARE, OTHER, SELFPAY ==
[2024-12-28] VITALS (18 sets, daily range): BP systolic 75–139; BP diastolic 35–96; BMI 23.2
--- NOTE | 2024-12-28 11:35 | PTCARENOTE ---
Patient wanted RN to try and get a peripheral IV site but unable to thread catheter. Min from IV team here to see patient and start IV. Will monitor patient.
== END 2024-12-28 15:50 | disposition home or self-care (01) ==
LOC: SDS 06:23
PROVIDERS: ATTENDING PHYSICIAN Internal Medicine Critical Care Medicine
DX: C77.0 Secondary and unspecified malignant neoplasm of lymph nodes of head, face and neck (principal); R91.8 Other nonspecific abnormal finding of lung field; I71.9 Aortic aneurysm of unspecified site, without rupture; Z87.891 Personal history of nicotine dependence
CPT/HCPCS: 31645; 31654; 71045; 87015; 87070; 87077; 87102; 87116; 87186; 87205; 88112; 88173; 88305; 88341; 88342; C1713

== ENCOUNTER → 2025-01-11 09:33 | Outpatient (REF) | payer MEDICARE, OTHER, SELFPAY ==
[2025-01-11 10:53] LABS: Hematocrit 47.3 % (39.0-52.0); Hemoglobin 15.0 g/dL (13.0-18.0); Mean Corp Hgb Conc. 31.7 g/dL (33.0-37.0); Mean Corpuscular Volume 97.1 fL (80.0-94.0); Nucleated Red Blood Cells % 0 % (-); Platelet Count 176 10^3/uL (130-400); Red Cell Dist. Width 13.3 % (11.5-14.5)
[2025-01-11 11:43] LABS: ALT (SGPT) 23 U/L (0-50); AST (SGOT) 22 U/L (17-59); Albumin 4.7 g/dl (3.5-5.0); Alkaline Phosphatase 76 U/L (38-126); Blood Urea Nitrogen 24 mg/dl (9-20); Calcium 10.2 mg/dl (8.4-10.2); Carbon Dioxide 30 mmol/L (22-30); Chloride 102 mmol/L (98-107); Glucose 114 mg/dl (70-99); Potassium 5.1 mmol/L (3.5-5.1); Sodium 138 mmol/L (135-145); Total Protein 7.9 g/dl (6.3-8.2); eGFR 46.77
[2025-01-11 12:09] LABS: TSH 5.05 uIU/ml (0.47-4.68)
[2025-01-12 13:33] LABS: Total T3 (Sendout) 102 ng/dL (80-200)
== END ==
LOC: REG 09:33
PROVIDERS: ATTENDING PHYSICIAN Internal Medicine Hematology & Oncology; REFERRING PHYSICIAN Internal Medicine Critical Care Medicine
DX: J98.4 Other disorders of lung (principal); C09.1 Malignant neoplasm of tonsillar pillar (anterior) (posterior); C44.42 Squamous cell carcinoma of skin of scalp and neck; R59.0 Localized enlarged lymph nodes; C43.4 Malignant melanoma of scalp and neck; C34.31 Malignant neoplasm of lower lobe, right bronchus or lung; C43.9 Malignant melanoma of skin, unspecified
CPT/HCPCS: 36415; 71046; 80053; 84439; 84443; 84480; 85025

== ENCOUNTER → 2025-01-19 10:25 | Outpatient (REF) | payer MEDICARE, OTHER, SELFPAY | LOC: MRI 10:25 | PROVIDERS: ATTENDING PHYSICIAN Radiology Radiation Oncology; FAMILY PHYSICIAN Physician Assistant | DX: C34.31 Malignant neoplasm of lower lobe, right bronchus or lung (principal) | CPT/HCPCS: 70553; A9575 ==

== ENCOUNTER → 2025-02-05 07:40 | Outpatient (REF) | payer MEDICARE, OTHER, SELFPAY ==
[2025-02-05 09:15] LABS: Hematocrit 39.2 % (39.0-52.0); Hemoglobin 13.0 g/dL (13.0-18.0); Mean Corp Hgb Conc. 33.2 g/dL (33.0-37.0); Mean Corpuscular Volume 91.2 fL (80.0-94.0); Nucleated Red Blood Cells % 0 % (-); Platelet Count 156 10^3/uL (130-400); Red Cell Dist. Width 13.2 % (11.5-14.5)
[2025-02-05 09:49] LABS: ALT (SGPT) 17 U/L (0-50); AST (SGOT) 21 U/L (17-59); Albumin 4.2 g/dl (3.5-5.0); Alkaline Phosphatase 69 U/L (38-126); Blood Urea Nitrogen 26 mg/dl (9-20); Calcium 9.3 mg/dl (8.4-10.2); Carbon Dioxide 26 mmol/L (22-30); Chloride 103 mmol/L (98-107); Glucose 113 mg/dl (70-99); Potassium 4.8 mmol/L (3.5-5.1); Sodium 136 mmol/L (135-145); Total Protein 7.1 g/dl (6.3-8.2); eGFR 55.53
== END ==
LOC: REG 07:40
PROVIDERS: ATTENDING PHYSICIAN Internal Medicine Hematology & Oncology
DX: C09.1 Malignant neoplasm of tonsillar pillar (anterior) (posterior) (principal); C44.42 Squamous cell carcinoma of skin of scalp and neck; R59.0 Localized enlarged lymph nodes; C43.4 Malignant melanoma of scalp and neck; C34.31 Malignant neoplasm of lower lobe, right bronchus or lung
CPT/HCPCS: 36415; 80053; 85025